=== PATIENT | male | born 1965 | race Caucasian/White ===

== ENCOUNTER 2023-11-23 20:12 | Emergency (ER) | payer BC, SELFPAY ==
[2023-11-23 20:13] VITALS: BP 174/102
--- NOTE | 2023-11-23 20:42 | ED.GENMED ---
History of Present Illness
General
Chief Complaint: Musculo-Skeletal Complaint
Time Seen by Provider: 11/23/23 20:18
Travel History
Have you had any contact with someone who has COVID-19?: No
Do you have any symptoms of coronavirus? Fever > 100 degrees, chills, cough, shortness of breath, sore throat, loss of taste or smell, muscle aches, or headache?: No
History of Present Illness
History of Present Illness:
58-year-old male presents the emergency department for evaluation of right ankle pain. Rolled the White right ankle when he missed a step. Arrives with crutches and orthopedic boot. He is able to bear some weight in the boot. Reports pain to the
medial and lateral ankle
Past History
Past History
ED Past Medical History: None
ED Past Surgical History: None
Social History
Tobacco: Non-smoker
Review of Systems
Review of Systems
Allergies reviewed?: Yes
All Other Systems: ROS reviewed and negative except as documented in HPI and ROS
Phy Exam
Physical Exam
Physical Exam:
GEN: Well appearing, NAD, WDWN
HEENT: Oral mucosa moist, no scleral icterus
Cardiac: Regular rate
Lung: No respiratory distress, no tachypnea
MSK: Modest swelling to the right lateral ankle with no gross deformities, no bony tenderness elicited to the medial or lateral malleoli or the base of the fifth metatarsal
Skin: Good color, no pallor or jaundice, no rashes
Neuro: AO x3, moves all extremities freely
Psych: Calm, cooperative
Course
Orders/Labs/Results
Orders:
Orders
11/23/23 20:16
Ankle, Right 3 view CR [CR Ankle - Right Min 3 Views *] Urgent
Comment:
Reason For Exam: ROLLED ANKLE WHILE WALKING
Vital Signs
Initial and Last Documented VS:
Initial Vital Signs
Temp Pulse Resp BP Pulse Ox
98.2 F 68 18 174/102 100
11/23/23 20:13 11/23/23 20:13 11/23/23 20:13 11/23/23 20:13 11/23/23 20:13
Last Documented Vital Signs
Temp Pulse Resp BP Pulse Ox
98.2 F 68 18 174/102 100
11/23/23 20:13 11/23/23 20:13 11/23/23 20:13 11/23/23 20:13 11/23/23 20:13
MDM/Problems Addressed
MDM/Problems Addressed:
X-rays of the right ankle independently to me are negative for acute fracture. Discussed supportive care. It is appropriate for him to continue to ambulate with walker assistance
*Critical Care Note
Total Time (30-74mins, 75-104mins- exclusive of procedures): Not Applicable
ED Attending Note
-
Portions of this chart may have been created with voice recognition software.� Occasional wrong word or��sound alike� substitutions may have occurred due to the inherent limitations of voice recognition software.
Discharge Plan
Departure
Patient Disposition: Home (Routine Discharge)
Date of Disposition: 11/23/23
Time of Disposition: 20:42
Patient with high blood pressure during this ER visit?: No
Discharge Problem:
Right ankle sprain
Instructions: Ankle Sprain (DC)
Referrals:
Darrell Khoury MD [Family Provider] -
Interventions
Interventions:
*Risk Screen - Suicide Last Done: 11/23/23 20:13
*Neglect/Abuse Screening Last Done: 11/23/23 20:13
ED- Fall Risk Assessment Last Done: 11/23/23 21:15
*Nursing Disposition Last Done: 11/23/23 21:15
ED-Musculoskeletal Assessment Last Done: 11/23/23 20:50
Discharge Date and Time
Discharge Date/Time: 11/23/23 21:15
== END 2023-11-23 21:15 | disposition home or self-care (01) ==
LOC: EMR 20:12
PROVIDERS: EMERGENCY PHYSICIAN Emergency Medicine; FAMILY PHYSICIAN Family Medicine
DX: S93.401A Sprain of unspecified ligament of right ankle, initial encounter (principal); X50.1XXA Overexertion from prolonged static or awkward postures, initial encounter; Y93.01 Activity, walking, marching and hiking
CPT/HCPCS: 99283; 73610